=== PATIENT | female | born 1935 | race Caucasian/White ===

== ENCOUNTER → 2021-04-25 | Outpatient (CLI) | payer OTHER ==
[~2021-04-25] MED LIST: ASPIRIN EC81 M1 PO; COQ-1030 MG PO; CRESTOR20 MG PO; HYDROCHLOROTHIA25 M1 PO; KEFLEX250 MG PO; MICARDIS 80 MG80 MG PO; NEURONTIN300 MG PO; PLAVIX 75 MG TA75 MG PO; PREDNISOLONE 5 M5 M1 PO; TEMOVATE15 GM TOP
== END ==
LOC: SJCVCIMAG 04-24 17:27
PROVIDERS: ATTEND Podiatrist Foot & Ankle Surgery
DX: I70.203 Unspecified atherosclerosis of native arteries of extremities, bilateral legs (principal); L97.519 Non-pressure chronic ulcer of other part of right foot with unspecified severity; I10 Essential (primary) hypertension; E78.00 Pure hypercholesterolemia, unspecified; Z79.82 Long term (current) use of aspirin; E78.5 Hyperlipidemia, unspecified; Z86.73 Personal history of transient ischemic attack (TIA), and cerebral infarction without residual deficits; Z90.49 Acquired absence of other specified parts of digestive tract; Z90.710 Acquired absence of both cervix and uterus; Z79.899 Other long term (current) drug therapy; Z82.49 Family history of ischemic heart disease and other diseases of the circulatory system

== ENCOUNTER → 2021-05-01 | Outpatient (CLI) | payer OTHER ==
[~2021-05-01] VITALS: Ht 152.4 cm; Wt 73.5 kg
[2021-05-01 07:33] VITALS: BP 186/59
[2021-05-01 08:34] LABS: HEMATOCRIT 44.6 % (37.0-47.0); HEMOGLOBIN 14.7 gm/dL (12.0-15.0); MCH 29.9 pg (26.0-34.0); MCV 90.7 fL (80.0-100.0); RBC 4.92 mil/uL (4.20-5.00); RDW 15.3 % (10.5-14.5); WBC 8.6 thou/uL (4.0-11.0)
[2021-05-01 08:41] LABS: CALCIUM 9.1 mg/dL (8.5-10.1); CREATININE 0.9 mg/dL (0.6-1.0); POTASSIUM 3.3 mmol/L (3.5-5.1)
--- NOTE | 2021-05-01 13:07 | EKG ---
[address] [address] [email or web address] [address] ELECTROCARDIOGRAM REPORT Name: CRYSTAL PAINTER Claudia Room #: [facility]LESAd[facility] [id number] Admission: 05/01/21 Attend Phys: Jaswinder Rodriguez MD Discharge: Date of : 37 Report #: [id number] [facility] Test Date: 2021-05-01 Test Time: 11:10:24 Pat Name: CRSYTAL PAINTER Department: Room: Gender: F Logistics Analyst: EDILMA : 1935 Requested By: Jaswinder Rodriguez Order Number: [id number] MD: Gilbert Alonso Measurements Intervals [place] Rate: 67 P: 62 MS: 168 QRS: 2 QRSD: 100 T: 55 QT: 438 QTc: 463 Interpretive Statements Sinus rhythm Borderline low voltage, extremity leads Abnormal R-wave progression, early transition Compared to ECG 10/03/2009 12:58:41 No significant change was found Electronically Signed On 05-01-2021 13:07:31 CDT by Gilbert Alonso [email or web address] <ELECTRONICALLY SIGNED> By: Gilbert Alonso MD, [facility] 05/01/21 1307 1110 1110 Gilbert Alonso MD, [facility] /EPI
== END | disposition home or self-care (01) ==
LOC: CATH 06:38
PROVIDERS: ATTEND Nuclear Medicine Nuclear Cardiology
DX: I70.238 Atherosclerosis of native arteries of right leg with ulceration of other part of lower leg (principal); L97.919 Non-pressure chronic ulcer of unspecified part of right lower leg with unspecified severity; I70.1 Atherosclerosis of renal artery; I10 Essential (primary) hypertension; I25.10 Atherosclerotic heart disease of native coronary artery without angina pectoris; E78.5 Hyperlipidemia, unspecified; Z98.890 Other specified postprocedural states; Z79.899 Other long term (current) drug therapy; Z90.710 Acquired absence of both cervix and uterus; Z90.49 Acquired absence of other specified parts of digestive tract; Z82.49 Family history of ischemic heart disease and other diseases of the circulatory system; Z79.82 Long term (current) use of aspirin

== ENCOUNTER → 2021-07-29 | Outpatient (CLI) | payer OTHER | LOC: SJCVCIMAG 11:07 | PROVIDERS: ATTEND Nuclear Medicine Nuclear Cardiology | DX: I70.201 Unspecified atherosclerosis of native arteries of extremities, right leg (principal); Z13.220 Encounter for screening for lipoid disorders; I10 Essential (primary) hypertension; E78.5 Hyperlipidemia, unspecified; E78.00 Pure hypercholesterolemia, unspecified; L97.519 Non-pressure chronic ulcer of other part of right foot with unspecified severity; Z86.73 Personal history of transient ischemic attack (TIA), and cerebral infarction without residual deficits; Z79.82 Long term (current) use of aspirin; Z79.899 Other long term (current) drug therapy; Z72.89 Other problems related to lifestyle ==

== ENCOUNTER → 2021-08-26 | Outpatient (CLI) | payer OTHER | LOC: SJCVC 15:34 | PROVIDERS: ATTEND Internal Medicine | DX: I48.0 Paroxysmal atrial fibrillation (principal); E78.5 Hyperlipidemia, unspecified; I10 Essential (primary) hypertension; L97.509 Non-pressure chronic ulcer of other part of unspecified foot with unspecified severity; I73.9 Peripheral vascular disease, unspecified; G62.9 Polyneuropathy, unspecified; Z86.73 Personal history of transient ischemic attack (TIA), and cerebral infarction without residual deficits; Z72.89 Other problems related to lifestyle; Z79.82 Long term (current) use of aspirin; Z79.899 Other long term (current) drug therapy ==

== ENCOUNTER → 2021-11-18 | Outpatient (CLI) | payer MEDICARE | LOC: SJCVCIMAG 08:21 | PROVIDERS: ATTEND Nuclear Medicine Nuclear Cardiology | DX: I65.23 Occlusion and stenosis of bilateral carotid arteries (principal); I73.9 Peripheral vascular disease, unspecified ==